=== PATIENT | female | born 1940 | race Caucasian/White ===

== ENCOUNTER 2025-06-05 19:46 | Emergency (ER) | payer MEDICARE ==
[2025-06-05 20:25] LABS: #Basophils 0.05 10x3/uL (0.0-0.2); #Eosinophils 0.25 10x3/uL (0.0-0.7); #Monocytes 0.46 10x3/uL (0.11-0.59); #Neutrophils 4.38 10x3/uL (1.40-6.50); %Basophils 0.9 % (0.0-1.0); %Eosinophils 4.3 % (0.0-10.0); %Lymphocytes 11.0 % (21.0-51.0); %Monocytes 7.9 % (0.0-10.0); %Neutrophils 75.6 % (42.0-75.0)
[2025-06-05 20:50] LABS: Anisocytosis SLIGHT = 6-15 cells HPF (0-5); Macrocytosis SLIGHT = 6-15 cells HPF (0-5); Ovalocytes SLIGHT = 2-5 cells HPF (0-1); Platelet Adequacy Comment Platelets Normal; Polychromasia SLIGHT = 2-3 cells HPF (0-2); Target Cells SLIGHT = 2-5 cells HPF (0-1)
[2025-06-05 20:54] LABS: Hematocrit 22.5 % (36.0-47.0); Hemoglobin 6.5 g/dL (12.0-16.0); Mean Corpuscular Hemoglobin 22.4 pg (27.0-31.0); Mean Corpuscular Volume 77.6 fL (78.0-98.0); Platelet Count 197 10x3/uL (130-400); Red Blood Cell (RBC) Count 2.90 mill/uL (4.20-5.40); White Blood Cell (WBC) Count 5.80 10x3/uL (4.8-10.8)
[2025-06-05 20:56] LABS: ALT (SGPT) 8 U/L (Less than 34); AST (SGOT) 25 U/L (11-34); Albumin 3.6 g/dL (3.1-4.5); Alkaline Phosphatase 91 U/L (40-110); Anion Gap 15 mmol/L (10-20); BUN (Urea Nitrogen) 15 mg/dL (9.8-20.1); Bilirubin, Total 0.4 mg/dL (0.3-1.2); Calc. Creatinine Clearance 0 mL/min (70-130); Calcium 9.6 mg/dL (7.8-10.44); Carbon Dioxide 23 mmol/L (23-31); Chloride 106 mmol/L (98-107); Globulin 2.9 g/dL (2.4-3.5); Glucose 113 mg/dL (83-110); Magnesium 1.9 mg/dL (1.6-2.6); Potassium 4.2 mmol/L (3.5-5.1); Sodium 140 mmol/L (136-145)
== END 2025-06-06 02:07 | disposition home or self-care (01) ==
LOC: ERS 19:46
DX: D64.9 Anemia, unspecified (principal); I10 Essential (primary) hypertension; E03.9 Hypothyroidism, unspecified; I48.91 Unspecified atrial fibrillation; Z79.899 Other long term (current) drug therapy; Z79.82 Long term (current) use of aspirin
CPT/HCPCS: 36430; 71045; 80053; 83735; 83880; 84484; 85025; 86850; 86900; 86901; 86920; 93005; 99285; P9016; 36415